=== PATIENT | male | born 1935 | race Hispanic/Latino ===

== ENCOUNTER 2020-12-21 17:08 | Emergency (ER) | payer MEDICARE ==
--- NOTE | 2020-12-21 18:30 | Emergency Department Report ---
HPI - General Chief Complaint: Dyspnea/Respdistress Time Seen by Provider: 12/21/20 17:49 - HPI HPI: Room 3 The patient is an 85-year-old male present with a chief complaint of shortness of breath. Patient states last night he developed shortness of breath cough productive yellow sputum. Patient admits to subjective fever. Patient is not on oxygen at home. Patient states he has received both Covid vaccinations as well as his booster, receiving a booster in November. Patient denies other complaints ED Past Medical Hx - Past Medical History Previous Medical History?: Yes Hx of Cancer: Yes (Prostate CA) Additional medical history: [place] - Surgical History Past Surgical History?: No Additional Surgical History: Prostatectomy, herniorrhaphy, back surgery x2 - Family History Family history: no significant - Social History Smoking Status: Former Smoker (None x40 years) Substance Use Type: None (Denies illicit drug use) - Medications Home Medications: Home Medications Medication Instructions Recorded Confirmed Last Taken Type Albuterol Mdi (or & Nicu Only) 2 puff IH QID PRN #8.5 gram 12/21/20 Unknown Rx [ProAir HFA Inhaler] Azithromycin [Zithromax Z-DORITA] 0 mg PO DAILY #6 tab 12/21/20 Unknown Rx Prednisone [predniSONE 10 mg 10 mg PO .TAPER #1 tab.ds.pk 12/21/20 Unknown Rx (6-Day Pack, 21 Tabs)] ED Review of Systems ROS: Stated complaint: sob Other details as noted in HPI Constitutional: fever (Subjective) Eyes: denies: eye pain Respiratory: cough, shortness of breath Cardiovascular: denies: chest pain Endocrine: no symptoms reported Gastrointestinal: denies: abdominal pain Genitourinary: denies: dysuria Musculoskeletal: denies: back pain Neurological: denies: headache Physical Exam - Physical Exam Vital Signs: Vital Signs 12/21/20 17:15 Temperature 97.4 F L Pulse Rate 82 Respiratory 20 Rate Blood Pressure 176/76 [Left] O2 Sat by Pulse 98 Oximetry Physical Exam: GENERAL: The patient is well-developed well-nourished male lying on stretcher not appearing to be in acute distress. [] HEENT: Normocephalic. Atraumatic. Extraocular motions are intact. Patient has moist mucous membranes. NECK: Supple. Trachea midline CHEST/LUNGS: Occasional wheezing anteriorly. Rhonchi posteriorly. There is no respiratory distress noted. HEART/CARDIOVASCULAR: Regular. There is no tachycardia. There is no gallop rub or murmur. ABDOMEN: Abdomen is soft, nontender. Patient has normal bowel sounds. There is no abdominal distention. SKIN: There is no rash. There is no edema. There is no diaphoresis. NEURO: The patient is awake, alert, and oriented. The patient is cooperative. The patient has no focal neurologic deficits. The patient has normal speech. GCS 15 MUSCULOSKELETAL: There is no evidence of acute injury. ED Course Vital Signs 12/21/20 17:15 Temperature 97.4 F L Pulse Rate 82 Respiratory 20 Rate Blood Pressure 176/76 [Left] O2 Sat by Pulse 98 Oximetry ED Medical Decision Making - Lab Data Result diagrams: 12/21/20 18:40 12/21/20 18:40 Laboratory Tests 12/21/20 12/21/20 12/21/20 18:40 18:40 18:40 WBC 14.4 H RBC 4.89 Hgb 13.6 Hct 43.0 MCV 88 MCH 28 MCHC 32 RDW 13.8 Plt Count 187 Seg Neutrophils % Associate Program Manager PT 14.5 INR 1.02 APTT 26.8 ABG pH ABG pCO2 ABG pO2 ABG HCO3 ABG O2 Saturation ABG O2 Content ABG Base Excess ABG Hemoglobin ABG Carboxyhemoglobin ABG Methemoglobin Oxyhemoglobin FiO2 Sodium 137 Potassium 3.6 Chloride 99.8 Carbon Dioxide 18 L Anion Gap 23 BUN 11 Creatinine 0.7 L Estimated GFR > 60 BUN/Creatinine Ratio 16 Glucose 228 H Calcium 9.0 Troponin T NT-Pro-B Natriuret Pep 12/21/20 12/21/20 18:40 18:45 WBC RBC Hgb Hct MCV MCH MCHC RDW Plt Count Seg Neutrophils % PT INR APTT ABG pH 7.402 ABG pCO2 31.6 ABG pO2 74.7 L ABG HCO3 19.2 L ABG O2 Saturation 95.8 ABG O2 Content 18.0 ABG Base Excess -4.5 L ABG Hemoglobin 13.6 L ABG Carboxyhemoglobin 1.5 ABG Methemoglobin 0.4 Oxyhemoglobin 94.0 L FiO2 21 Sodium Potassium Chloride Carbon Dioxide Anion Gap BUN Creatinine Estimated GFR BUN/Creatinine Ratio Glucose Calcium Troponin T < 0.010 NT-Pro-B Natriuret Pep 502.9 - EKG Data -: EKG Interpreted by Me EKG shows normal: sinus rhythm Rate: normal - EKG Data When compared to previous EKG there are: previous EKG unavailable Interpretation: other (Right bundle branch block) - Radiology Data Radiology results: report reviewed (Chest x-ray), image reviewed (Chest x-ray) interpreted by me: Chest x-ray-no definite focal infiltrates, no pneumothorax [facility] [address] [place] [address] XRay Report Signed Patient: MAICO KHALIL MR#: [id number] : 1935 Acct:[id number] Age/Sex: 85 / M ADM Date: 12/21/20 Loc: ED Attending Dr: Ordering Physician: LARRY LAZO MD Date of Service: 12/21/20 Procedure(s): XR chest 1V ap Accession Number(s): [id number] cc: LARRY LAZO MD Fluoro Time In Minutes: CHEST 1 VIEW 12/21/2020 6:39 PM INDICATION / CLINICAL INFORMATION: Shortness of breath. COMPARISON: None available. FINDINGS: SUPPORT DEVICES: None. HEART / MEDIASTINUM: Heart size is within normal limits. Sternotomy wires. LUNGS / PLEURA: No significant pulmonary or pleural abnormality. No pneumothorax. ADDITIONAL FINDINGS: Probable hiatal hernia. IMPRESSION: 1. No acute findings. Signer Name: Franklyn Esteves MD Signed: 12/21/2020 7:54 PM Workstation Name: [id number] Transcribed By: DB Dictated By: FRANKLYN ESTEVES MD Electronically Authenticated By: FRANKLYN ESTEVES MD Signed Date/Time: 12/21/201953 DD/ 53 TD/TT: Print Cancel - Differential Diagnosis Pneumonia, bronchitis Critical care attestation.: If time is entered above; I have spent that time in minutes in the direct care of this critically ill patient, excluding procedure time. ED Disposition Clinical Impression: Acute bronchitis, Reactive airway disease Disposition: HOME / SELF CARE / HOMELESS Is pt being admited?: No Does the pt Need Aspirin: No Condition: Stable Instructions: Acute Bronchitis (ED), Acute Bronchitis, Adult, [id number], Cough, Adult, [id number] Additional Instructions: Return to the emergency department should you develop worsening symptoms, inability to tolerate food or liquids, high fever or any other concerns Prescriptions: Prednisone [predniSONE 10 mg (6-Day Pack, 21 Tabs)] 10 mg PO .TAPER #1 tab.ds.pk Albuterol Mdi (or & Nicu Only) [ProAir HFA Inhaler] 2 puff IH QID PRN #8.5 gram PRN Reason: Shortness Of Breath Azithromycin [Zithromax Z-DORITA] 0 mg PO DAILY #6 tab Referrals: SY BLEVINS MD [Staff Physician] - 3-5 Days PAPA HER MD [Staff Physician] - 3-5 Days (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 Please follow-up with him to be established as a patient) Time of Disposition: 20:04
[2020-12-21 19:11] LABS: ABG Base Excess -4.5 mmol/L (-2.0-3.0); ABG HCO3 19.2 mmol/L (20.0-26.0); ABG Methemoglobin 0.4 % (0.0-1.5); ABG Oxygen Saturation 95.8 % (95.0-99.0); ABG PCO2 31.6 mm Hg; ABG PH 7.402 pH Units (7.350-7.450); ABG PO2 74.7 mm Hg (80.0-90.0)
[2020-12-21 19:17] LABS: Hemoglobin 13.6 gm/dl (11.8-15.2); Mean Corpuscular HGB Conc 32 % (32-34); Mean Corpuscular Volume 88 fl (84-94); Platelet Count 187 K/mm3 (140-440); Red Blood Count 4.89 M/mm3 (3.65-5.03); Red Cell Distribution Width 13.8 % (13.2-15.2)
[2020-12-21 19:25] LABS: INR 1.02 (0.87-1.13)
[2020-12-21 19:26] LABS: Partial Thromboplastin Time 26.8 Sec. (24.2-36.6)
[2020-12-21 19:31] LABS: Blood Urea Nitrogen 11 mg/dL (9-20); Hemolysis Index 8
[2020-12-21 19:32] LABS: BUN/Creatinine Ratio 16
--- NOTE | 2020-12-21 19:59 | XRay Report ---
CHEST 1 VIEW 12/21/2020 6:39 PM INDICATION / CLINICAL INFORMATION: Shortness of breath. COMPARISON: None available. FINDINGS: SUPPORT DEVICES: None. HEART / MEDIASTINUM: Heart size is within normal limits. Sternotomy wires. LUNGS / PLEURA: No significant pulmonary or pleural abnormality. No pneumothorax. ADDITIONAL FINDINGS: Probable hiatal hernia. IMPRESSION: 1. No acute findings. Signer Name: Franklyn Esteves MD Signed: 12/21/2020 7:54 PM Workstation Name: [id number]
[2020-12-21 21:07] LABS: Platelet Estimate Consistent w Auto; RBC Morphology Normal; Total Cells Counted 100
[2020-12-21 21:54] VITALS: BP 135/82
--- NOTE | 2020-12-23 10:37 | Electrocardiograph Report ---
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
--- NOTE | 2020-12-23 10:37 | Electrocardiograph Report ---
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
== END 2020-12-21 21:15 | disposition home or self-care (01) ==
LOC: ED 17:08
DX: J20.9 Acute bronchitis, unspecified (principal); J45.909 Unspecified asthma, uncomplicated; Z87.891 Personal history of nicotine dependence; Z98.890 Other specified postprocedural states
CPT/HCPCS: 36415; 71045; 80048; 82803; 83880; 84484; 85007; 85025; 85610; 85730; 93005; 99284